=== PATIENT | male | born 1930 | race Caucasian/White ===

== ENCOUNTER 2017-05-28 10:42 | Emergency (ER) | payer MEDICARE ==
[~2017-05-28] VITALS: Ht 177.8 cm; Wt 72.5 kg
[~2017-05-28 10:42] MED LIST: ACTO35TA PO; ASPI81 PO; BENI20TA25 PO; CENTTAB9 PO; CIAL10TA PO; NEXI40CA PO; ZOFR4TAB3 PO
[2017-05-28 10:45] VITALS: BP 93/52; PULSE 51; RESP 18; TEMP 97.8; O2SAT 97
[2017-05-28] MEDS ORDERED: LIDOCAINE 0.5%/EPINEPHrine 1:200,000 SOLN 50 ML VIAL INFIL ONE (11:00)
--- NOTE | 2017-05-28 11:01 | PD ---
HPI Chief Complaint: fall Time Seen by Provider: 10:53 Travel History International Travel<30 days: No Contact w/Intl Traveler<30days: No Traveled to known affect area: No History of Present Illness HPI This 86-year-old male is brought for evaluation of injuries from a fall. He says he was out for his daily walk. He walks about 3 miles a day area he says he tripped on a root and landed on both of his hands. He believes that the watch on his left wrist caused a laceration. He denies any chest or abdominal pain. It was reported that he had a syncopal episode while in our department was attending to his injury. Patient does not think that he did have a syncopal episode. He denies any chest pain or palpitations PFS Past Medical History Cancer: Yes (PROSTATE) High Cholesterol: Yes Coronary Artery Disease: Yes GERD: Yes Hypertension: Yes Radiation Therapy: Yes (PROSTATE) Past Surgical History Appendectomy: Yes Tonsillectomy: Yes Social History Alcohol Use: Yes (OCCASIONALLY) Tobacco Use: No Substance Use: No Allergies-Medications (Allergen,Severity, Reaction): Coded Allergies: No Known Allergies (Verified Adverse Reaction, Unknown, 05/28/17) Reported Meds & Prescriptions Reported Meds & Active Scripts Active Reported Vitamin B-12 (Cyanocobalamin) 1,000 Mcg Tab 1,000 Mcg PO DAILY Centrum (Multiple Vitamins W/ Minerals) 1 Chew 1 Tab CHEW DAILY Aspirin EC (Aspirin) 81 Mg Tabdr 81 Mg PO DAILY Nexium (Esomeprazole DR) 40 Mg Capdr 40 Mg PO DAILY Pravastatin 40 Mg Tab 40 Mg PO DAILY Benicar Hct (Olmesartan-Hydrochlorothiazide) 40-25 mg Tab 1 Tab PO DAILY Glucosamine-Chondroitin 500-400 Mg Tab 1 Tab PO DAILY Review of Systems Except as stated in HPI: all other systems reviewed are Neg General / Constitutional: No: Fever, Chills Eyes: No: Diploplia, Blurred Vision HENT: No: Headaches Cardiovascular: No: Chest Pain or Discomfort, Palpitations Respiratory: No: Cough, Shortness of Breath Gastrointestinal: No: Vomiting, Diarrhea Genitourinary: No: Urgency, Frequency Skin: No Rash Endocrine: No: Heat Intolerance, Cold Intolerance Hematologic/Lymphatic: No: Easy Bruising Physical Exam Narrative GENERAL: Well-developed male SKIN: Focused skin assessment warm/dry. HEAD: Atraumatic. Normocephalic. EYES: Pupils equal and round. No scleral icterus. No injection or drainage. ENT: No nasal bleeding or discharge. Mucous membranes pink and moist. NECK: Trachea midline. No JVD. CARDIOVASCULAR: Regular rate and rhythm. No murmur appreciated. RESPIRATORY: No accessory muscle use. Clear to auscultation. Breath sounds equal bilaterally. GASTROINTESTINAL: Abdomen soft, non-tender, nondistended. Hepatic and splenic margins not palpable. MUSCULOSKELETAL: No obvious deformities. No clubbing. No cyanosis. No edema. He has a serration on the radial side of the left wrist. Also scattered abrasions. Woodworker appear equal and does not appear to be any bony tenderness. NEUROLOGICAL: Awake and alert. No obvious cranial nerve deficits. Motor grossly within normal limits. Normal speech. PSYCHIATRIC: Appropriate mood and affect; insight and judgment normal. Data Data Last Documented VS Vital Signs Date Time Temp Pulse Resp B/P (MAP) Pulse Ox O2 Delivery O2 Flow Rate FiO2 05/28/17 12:49 65 20 126/60 (82) 95 Room Air 05/28/17 10:45 97.8 Orders Orders Lidocai-Epi 0.5%-1:200,000 Inj (Xylocain (05/28/17 11:00) Electrocardiogram (05/28/17 10:53) Complete Blood Count With Diff (05/28/17 10:53) Basic Metabolic Panel (Bmp) (05/28/17 10:53) Sodium Chlorid 0.9% 500 Ml Inj (Ns 500 M (05/28/17 11:15) Tetanus/Diphtheria Tox Adult (Tetanus/Di (05/28/17 12:45) Ed Discharge Order (05/28/17 12:34) Labs Laboratory Tests Test 05/28/17 11:05 White Blood Count 14.1 TH/MM3 Red Blood Count 3.59 MIL/MM3 Hemoglobin 10.6 GM/DL Hematocrit 33.5 % Mean Corpuscular Volume 93.4 FL Mean Corpuscular Hemoglobin 29.6 PG Mean Corpuscular Hemoglobin Concent 31.6 % Red Cell Distribution Width 13.5 % Platelet Count 115 TH/MM3 Mean Platelet Volume 9.1 FL Neutrophils (%) (Auto) 27.5 % Lymphocytes (%) (Auto) 68.2 % Monocytes (%) (Auto) 3.0 % Eosinophils (%) (Auto) 0.6 % Basophils (%) (Auto) 0.7 % Neutrophils # (Auto) 3.9 TH/MM3 Lymphocytes # (Auto) 9.6 TH/MM3 Monocytes # (Auto) 0.4 TH/MM3 Eosinophils # (Auto) 0.1 TH/MM3 Basophils # (Auto) 0.1 TH/MM3 CBC Comment AUTO DIFF Differential Total Cells Counted 100 Neutrophils % (Manual) 39 % Band Neutrophils % 1 % Lymphocytes % 59 % Eosinophils % 1 % Neutrophils # (Manual) 5.6 TH/MM3 Differential Comment FINAL DIFF MANUAL Blood Urea Nitrogen 29 MG/DL Creatinine 1.70 MG/DL Random Glucose 120 MG/DL Calcium Level 8.4 MG/DL Sodium Level 137 MEQ/L Potassium Level 3.8 MEQ/L Chloride Level 102 MEQ/L Carbon Dioxide Level 29.5 MEQ/L Anion Gap 6 MEQ/L Estimat Glomerular Filtration Rate 38 ML/MIN MDM Medical Decision Making Medical Screen Exam Complete: Yes Emergency Medical Condition: Yes Medical Record Reviewed: Yes Differential Diagnosis Differential includes laceration left wrist. Because of the questionable syncopal episode I did order some blood work which is unremarkable. EKG shows sinus bradycardia which was present on an EKG of 2011. He is stable for discharge Narrative Course Workup for syncope as negative. Patient is stable for discharge. His laceration has been sutured Diagnosis Primary Impression: Laceration of left wrist Additional Instructions: Suture removal 10 days Disposition: 01 DISCHARGE HOME Condition: Stable Nathaniel Taylor MD May 28, 2017 11:01
[2017-05-28] MEDS ORDERED: CENTCHW4 CHEW (11:05)
[2017-05-28] MEDS ORDERED: PRAV40TA2 PO (11:05)
[2017-05-28] MEDS ORDERED: VITA10002 PO (11:05)
[2017-05-28] MEDS ORDERED: NEXI40CA PO (11:05)
[2017-05-28] MEDS ORDERED: GLUC500T4 PO (11:05)
[2017-05-28] MEDS ORDERED: BENI40TA7 PO (11:05)
[2017-05-28] MEDS ORDERED: ASPI81TA23 PO (11:05)
[2017-05-28 11:15] LABS: AUTOMATED NEUTROPHIL # 3.9 TH/MM3 (1.8-7.7); BASOPHIL # 0.1 TH/MM3 (0-0.2); BASOPHIL % 0.7 % (0.0-2.0); EOSINOPHIL # 0.1 TH/MM3 (0-0.4); EOSINOPHIL % 0.6 % (0.0-4.0); HEMATOCRIT 33.5 % (39.0-51.0); HEMOGLOBIN 10.6 GM/DL (13.0-17.0); LYMPH % 68.2 % (9.0-44.0); LYMPHOCYTE # 9.6 TH/MM3 (1.0-4.8); MEAN CELL VOLUME 93.4 FL (80.0-100.0); MEAN CORPUSCULAR HEMOGLOBIN 29.6 PG (27.0-34.0); MEAN CORPUSCULAR HGB CONC 31.6 % (32.0-36.0); MEAN PLATELET VOLUME 9.1 FL (7.0-11.0); MONOCYTE # 0.4 TH/MM3 (0-0.9); NEUT % 27.5 % (16.0-70.0); PLATELET COUNT 115 TH/MM3 (150-450); RED BLOOD COUNT 3.59 MIL/MM3 (4.50-5.90); RED CELL DISTRIBUTION WIDTH 13.5 % (11.6-17.2); WHITE BLOOD COUNT 14.1 TH/MM3 (4.0-11.0)
[2017-05-28] MEDS ORDERED: SODIUM CHLORID 0.9% 500 ML INJ 500 ML IV ONE (11:15)
[2017-05-28 11:28] LABS: CALCIUM 8.4 MG/DL (8.5-10.1)
[2017-05-28 11:29] LABS: BICARBONATE 29.5 MEQ/L (21.0-32.0)
[2017-05-28 11:32] LABS: CREATININE 1.7 MG/DL (0.60-1.30)
[2017-05-28 11:48] LABS: BANDS 1 % (0-6); LYMPHOCYTES 59 % (9-44); NEUTROPHIL # MANUAL DIFF 5.6 TH/MM3 (1.8-7.7); POLYS (SEG NEUTROPHILS) 39 % (16-70)
--- NOTE | 2017-05-28 12:24 | PD ---
Physical Exam Narrative I was asked by Dr. Carbone to repair patient's lacerations of his left forearm. Please see his documentation for full H&P. Data Data Last Documented VS Vital Signs Date Time Temp Pulse Resp B/P (MAP) Pulse Ox O2 Delivery O2 Flow Rate FiO2 05/28/17 10:56 51 97 Room Air 05/28/17 10:45 97.8 18 93/52 (66) Orders Orders Lidocai-Epi 0.5%-1:200,000 Inj (Xylocain (05/28/17 11:00) Electrocardiogram (05/28/17 10:53) Complete Blood Count With Diff (05/28/17 10:53) Basic Metabolic Panel (Bmp) (05/28/17 10:53) Sodium Chlorid 0.9% 500 Ml Inj (Ns 500 M (05/28/17 11:15) Labs Laboratory Tests Test 05/28/17 11:05 White Blood Count 14.1 TH/MM3 Red Blood Count 3.59 MIL/MM3 Hemoglobin 10.6 GM/DL Hematocrit 33.5 % Mean Corpuscular Volume 93.4 FL Mean Corpuscular Hemoglobin 29.6 PG Mean Corpuscular Hemoglobin Concent 31.6 % Red Cell Distribution Width 13.5 % Platelet Count 115 TH/MM3 Mean Platelet Volume 9.1 FL Neutrophils (%) (Auto) 27.5 % Lymphocytes (%) (Auto) 68.2 % Monocytes (%) (Auto) 3.0 % Eosinophils (%) (Auto) 0.6 % Basophils (%) (Auto) 0.7 % Neutrophils # (Auto) 3.9 TH/MM3 Lymphocytes # (Auto) 9.6 TH/MM3 Monocytes # (Auto) 0.4 TH/MM3 Eosinophils # (Auto) 0.1 TH/MM3 Basophils # (Auto) 0.1 TH/MM3 CBC Comment AUTO DIFF Differential Total Cells Counted 100 Neutrophils % (Manual) 39 % Band Neutrophils % 1 % Lymphocytes % 59 % Eosinophils % 1 % Neutrophils # (Manual) 5.6 TH/MM3 Differential Comment FINAL DIFF MANUAL Blood Urea Nitrogen 29 MG/DL Creatinine 1.70 MG/DL Random Glucose 120 MG/DL Calcium Level 8.4 MG/DL Sodium Level 137 MEQ/L Potassium Level 3.8 MEQ/L Chloride Level 102 MEQ/L Carbon Dioxide Level 29.5 MEQ/L Anion Gap 6 MEQ/L Estimat Glomerular Filtration Rate 38 ML/MIN [facility] Supervised Visit with MURALI: No Procedures Procedure Narrative LACERATION REPAIR LOCATION: Left forearm LENGTH: Approximately 11 cm in total length slightly Y-shaped NUMBER OF STITCHES/SUSHILA: 1 simple interrupted subcutaneous and 11 simple interrupted to close. REPAIR: Verbal consent was obtained. The area of the laceration was cleaned and prepped. The laceration was infiltrated with lidocaine with epi. The wound was copiously irrigated and explored without evidence of foreign body, bony involvement, ligament injury, tendon injury, or neurovascular injury. The wound was closed using 4-0 Vicryl and 4-0 Ethilon by medical student Emelina. This was a 2 layer repair. A sterile dressing was applied. The patient was advised to keep the affected area as clean and dry as possible using soap and water. There were no complications. Patient tolerated the procedure well. LACERATION REPAIR LOCATION: Left forearm LENGTH: Approximately 1.5 cm in total length NUMBER OF STITCHES/SUSHILA: 2 simple interrupted REPAIR: Verbal consent was obtained. The area of the laceration was cleaned and prepped. The laceration was infiltrated with lidocaine with epi. The wound was copiously irrigated and explored without evidence of foreign body, bony involvement, ligament injury, tendon injury, or neurovascular injury. The wound was closed using 4-0 Ethilon by medical student Emelina. This was a 1 layer repair. A sterile dressing was applied. The patient was advised to keep the affected area as clean and dry as possible using soap and water. There were no complications. Patient tolerated the procedure well. Bean Ling May 28, 2017 12:24
[2017-05-28] MEDS ORDERED: TETANUS/DIPHTHERIA TOXOID ADULT 0.5 ML VIAL IM ONE (12:45)
[2017-05-28 12:49] VITALS: BP 126/60; PULSE 65; RESP 20; O2SAT 95
--- NOTE | 2017-05-29 16:46 | EKG ---
Date Performed: 05/28/2017 Time Performed: 11:11:53 PTAGE: 86 years EKG: SINUS BRADYCARDIA BORDERLINE ECG PREVIOUS TRACING : 08/25/2011 11.41 Since previous tracing, no significant change noted DOCTOR: Jules Cleaning Interpretating Date/Time 05/29/2017 16:46:03
== END 2017-05-28 13:41 | disposition home or self-care (01) ==
LOC: PHED 10:42
DX: S61.512A Laceration without foreign body of left wrist, initial encounter (principal); E78.00 Pure hypercholesterolemia, unspecified; I10 Essential (primary) hypertension; I25.10 Atherosclerotic heart disease of native coronary artery without angina pectoris; K21.9 Gastro-esophageal reflux disease without esophagitis; W18.09XA Striking against other object with subsequent fall, initial encounter; Y93.01 Activity, walking, marching and hiking; Z23 Encounter for immunization
CPT/HCPCS: 12001; 12034; 80048; 85007; 85027; 90471; 90714; 93005; 96360; 99284; J7040